=== PATIENT | male | born 1945 | race Caucasian/White ===

== ENCOUNTER 2016-10-09 21:48 | Emergency (ER) | payer MEDICARE, MEDICAID ==
[~2016-10-09] VITALS: Ht 160 cm; Wt 76.8 kg
--- NOTE | 2016-10-09 22:08 | NUR ---
used lift to place pt in bed he tolerated well.
[2016-10-09 22:30] LABS: BASOPHILS % (AUTO) 0 % (0-2); EOSINOPHILS # (AUTO) 0.3 10^3uL; EOSINOPHILS % (AUTO) 3 % (0-4); LYMPHOCYTES # (AUTO) 2.6 X10^3; MEAN CORPUSCULAR HEMOGLOBIN 30.6 PG (26.0-34.0); MEAN CORPUSCULAR HGB CONC 33.4 g/dL (31.0-37.0); MEAN CORPUSCULAR VOLUME 92 FL (80-100); MEAN PLATELET VOLUME 9.7 FL (6.0-9.5); MONOCYTES # (AUTO) 1.4 X10^3; MONOCYTES % (AUTO) 14 % (3-11); NEUTROPHILS # (AUTO) 5.2 X10^3; NEUTROPHILS % (AUTO) 55 % (51-67); PLATELET COUNT 287 10^3uL (150-450); WHITE BLOOD COUNT 9.52 10^3uL (4.0-11.0)
[2016-10-09 22:41] LABS: ALBUMIN 3.8 g/dL (3.4-5.0); ALKALINE PHOSPHATASE 122 U/L (38-126); ANION GAP 11.1 MEQ/L (3-15); BUN/CREATININE RATIO 21 (10-20); CALCULATED IONIZED CALCIUM 3.7 mg/dL (3.8-4.6); CREATINE KINASE 36 U/L (55-170); TOTAL PROTEIN 7.9 g/dL (6.4-8.5)
[2016-10-09 23:18] VITALS: BP 126/66
== END 2016-10-09 23:15 | disposition home or self-care (01) ==
LOC: ED 21:49
DX: M94.0 Chondrocostal junction syndrome [Tietze] (principal)
CPT/HCPCS: 36415; 80053; 82550; 82553; 83880; 84484; 85025; 85610; 86140; 93005; 93010; 99284; 99285

== ENCOUNTER → 2016-11-09 | Outpatient (CLI) | payer MEDICARE, MEDICAID | LOC: RAD 17:49 | PROVIDERS: ATTEND Family Medicine | DX: S93.402A Sprain of unspecified ligament of left ankle, initial encounter (principal); M85.872 Other specified disorders of bone density and structure, left ankle and foot; S92.002A Unspecified fracture of left calcaneus, initial encounter for closed fracture; X58.XXXA Exposure to other specified factors, initial encounter | CPT/HCPCS: 73610 ==

== ENCOUNTER → 2016-12-14 | Outpatient (CLI) | payer MEDICARE, MEDICAID ==
[~2016-12-14] MED LIST: AC325T PO; ACET-2264 PO; ALEN35TA32 PO; ATOR10TA PO; AZIT250T81 PO; BACL20TA PO; CITA40TA19 PO; DEXT1DRO7 OP; DICL100G13 TOP; DILT-23 PO; EYEL1KIT TP; FURO-125 PO; LEVO250T46 PO; LEVO75TA4 PO; MELO7.5T PO; MTC5T PO; MULT-1034 PO; MULT1CAP27 PO; NF-FLON16G NS; OMEP20TA PO; POTA10CA43 PO; RANI300C PO; TERA2CAP4 PO; TRM50T PO; TRZS2T GT
[2016-12-14 10:26] LABS: BASOPHILS % (AUTO) 0 % (0-2); EOSINOPHILS # (AUTO) 0.2 10^3uL; EOSINOPHILS % (AUTO) 3 % (0-4); LYMPHOCYTES # (AUTO) 1.9 X10^3; MEAN CORPUSCULAR HEMOGLOBIN 30.3 PG (26.0-34.0); MEAN CORPUSCULAR HGB CONC 32.5 g/dL (31.0-37.0); MEAN CORPUSCULAR VOLUME 93 FL (80-100); MEAN PLATELET VOLUME 9.5 FL (6.0-9.5); MONOCYTES # (AUTO) 0.7 X10^3; MONOCYTES % (AUTO) 9 % (3-11); NEUTROPHILS % (AUTO) 64 % (51-67); PLATELET COUNT 305 10^3uL (150-450); WHITE BLOOD COUNT 7.76 10^3uL (4.0-11.0)
[2016-12-14 11:54] LABS: ALBUMIN 3.8 g/dL (3.4-5.0); ANION GAP 15.7 MEQ/L (3-15); CALCULATED IONIZED CALCIUM 4.1 mg/dL (3.8-4.6); MAGNESIUM* 2.1 mg/dL (1.6-2.3); TOTAL PROTEIN 7.3 g/dL (6.4-8.5)
--- NOTE | 2016-12-14 12:41 | Diagnostic Imaging Report ---
INDICATION: Follow-up fracture. Three views. 10:38 am. COMPARISON: 11/09/2016. FINDINGS: Intra-articular fracture of the distal tibia is present involving the base of the medial malleolus. Assessment is difficult because of osteopenia. The extent of the fracture is difficult to determine. CT would be needed for better assessment. The fracture does not show any change in alignment from the prior exam. There is some sclerosis along the fracture margins; however, the fracture line remains clearly visible. Abnormal concavity of the anterior subtalar calcaneus is present which may be acute or chronic and is unchanged. Postoperative changes are visible involving the medial foot with a compression plate and threaded screws partially visualized. IMPRESSION: 1. Little change in the interval. Slight sclerosis along the distal tibial fracture margins. Dictated by: Dictated on workstation # [id number]
== END ==
LOC: LAB 10:07
PROVIDERS: ATTEND Family Medicine
DX: E78.2 Mixed hyperlipidemia (principal); R79.89 Other specified abnormal findings of blood chemistry; D50.8 Other iron deficiency anemias; E11.65 Type 2 diabetes mellitus with hyperglycemia; E83.42 Hypomagnesemia; Z12.5 Encounter for screening for malignant neoplasm of prostate; E03.4 Atrophy of thyroid (acquired); M81.0 Age-related osteoporosis without current pathological fracture; S82.52XD Displaced fracture of medial malleolus of left tibia, subsequent encounter for closed fracture with routine healing; S92.102D Unspecified fracture of left talus, subsequent encounter for fracture with routine healing; X58.XXXD Exposure to other specified factors, subsequent encounter
CPT/HCPCS: 36415; 73610; 80053; 80061; 82306; 83036; 83735; 84436; 84443; 85025; G0103; 84153